=== PATIENT | female | born 1995 | race African-American/Black ===

== ENCOUNTER 2016-09-24 10:04 | Emergency (ER) | payer MEDICAID, OTHER ==
[~2016-09-24] VITALS: Ht 167.6 cm; Wt 112.5 kg
[~2016-09-24 10:04] MED LIST: NKM
--- NOTE | 2016-09-24 10:27 | Emergency Room Report ---
History of Present Illness General Chief Complaint: Abdominal Pain Source: Patient Present Illness HPI Patient presents with left lower abdominal pain sharp Onset this morning After going to the bathroom she also noticed some spotting vaginally Patient had an ultrasound performed on Wednesday which showed approximately 26 week Patient is Denies any chest pain or shortness of breath denies any back or flank pain Denies any dysuria frequency Allergies: Coded Allergies: No Known Allergies (Unverified , 09/24/16) Patient History Past Medical History: see triage record Pertinent Family History: none Last Menstrual Period: february 2016 Now: Yes : 1 Para: 0 Reviewed Nursing Documentation: PMH: Agreed, PSxH: Agreed Nursing Documentation-PMH Past Medical History: No Stated History Review of Systems All Other Systems: negative except mentioned in HPI Physical Exam Vital Signs Date Time Temp Pulse Resp B/P Pulse Ox O2 Delivery O2 Flow Rate FiO2 09/24/16 10:09 98.2 104 20 92/59 99 Room Air Sp02 EP Interpretation: reviewed, normal General Appearance: well appearing, no apparent distress Head: normocephalic, atraumatic Eyes: bilateral eye EOMI, bilateral eye PERRL ENT: hearing grossly normal, normal pharynx, TMs + canals normal, uvula midline Neck: full range of motion, supple, no meningismus, no bony tend Respiratory: lungs clear, normal breath sounds, no rhonchi, no respiratory distress, no retraction, no accessory muscle use Cardiovascular #1: normal peripheral pulses, regular rate, rhythm, no edema, no gallop, no JVD, no murmur Gastrointestinal: normal bowel sounds, non tender - Patient is somewhat obese makes the examination difficult, , soft, no mass, no organomegaly, non- distended, no guarding, no hernia, no pulsatile mass, no rebound Genitourinary: no CVA tenderness Musculoskeletal: normal inspection Neurologic: oriented x3, responsive, dust mixer III-XII nml as tested, motor strength/ tone normal, sensory intact Psychiatric: mood/affect normal Skin: normal color, no rash, warm/dry, palpation normal Lymphatic: normal inspection, no adenopathy Medical Decision Making Diagnostic Impression: Primary Impression: Threatened miscarriage ER Course Given the patient's history and exam emergent ultrasound was obtained at this time heart tone is observed No other obvious acute pathology was noted by general ultrasound Given the patient is over 24 weeks, heart tone monitoring and monitoring is appropriate In discussion with the family they're choosing to go by private auto to there pro shop attendant for further care There was a mention regarding [facility] I did attempt to contact [facility] to notify them of the patient's private transportation to that facility, for evaluation of possible early labor However I was not able to get in contact with labor and delivery department Patient does not have any signs of active contractions, does not appear to be in active labor the os is closed and therefore the patient was at this time discharged from our emergency room for further close followup, , Please note that there were a few bacteria in the urine and the patient was placed on Macrobid for this, Labs Test 09/24/16 10:19 Urine Color Yellow Urine Appearance Slightly cloudy Urine pH 8 (4.5-8.0) Urine Specific [place] 1.015 (1.005-1.035) Urine Protein Negative (NEGATIVE) Urine Glucose (UA) Negative (NEGATIVE) Urine Ketones Negative (NEGATIVE) Urine Occult Blood Negative (NEGATIVE) Urine Nitrite Negative (NEGATIVE) Urine Bilirubin Negative (NEGATIVE) Urine Urobilinogen Normal MG/DL (0.0-1.0) Urine Leukocyte Esterase 1+ (NEGATIVE) Urine RBC 0-2 /HPF (0 - 2) Urine WBC 5-10 /HPF (0 - 2) Urine Squamous Epithelial Cells Moderate /LPF (NONE/OCC) Urine Bacteria Few /HPF (NONE) CT/MRI/US Diagnostic Results CT/MRI/US Diagnostic Results : Impression pelvic ultrasoundmpression: 26 week 3 day single 5 intrauterine . No unusual features Last Vital Signs Date Time Temp Pulse Resp B/P Pulse Ox O2 Delivery O2 Flow Rate FiO2 09/24/16 10:09 98.2 104 20 92/59 99 Room Air Status: improved Disposition: HOME, SELF-CARE Condition: Improved Scripts Nitrofurantoin Monohyd/M-Cryst* (MACROBID 100 MG*) 100 Mg Capsule 100 MG ORAL EVERY 12 HOURS for 5 Days, CAP Prov: JOYCE VEGA D.O. 09/24/16 Additional Instructions: Patient is provided with the discharge instructions notified to follow up with primary doctor in the next 2-3 days otherwise return to the er with any worsening symptoms. Please note that this report is being documented using [employer] technology. This can lead to erroneous entry secondary to incorrect interpretation by the dictating instrument. JOYCE VEGA D.O. Sep 24, 2016 10:27
[2016-09-24 10:39] LABS: APPEARANCE,URINE SLIGHTLY CLOUDY; KETONES,URINE NEGATIVE (NEGATIVE); LEUKOCYTE ESTERASE ,URINE 1+ (NEGATIVE); NITRITE,URINE NEGATIVE (NEGATIVE); PH,URINE 8 (4.5-8.0); PROTEIN,URINE NEGATIVE (NEGATIVE); UROBILINOGEN,URINE NORMAL MG/DL (0.0-1.0)
[2016-09-24 10:54] LABS: BACTERIA,URINE FEW /HPF; RBC,URINE 0-2 /HPF (0 - 2); SQUAMOUS EPITHELIAL CELL,UR MODERATE /LPF (NONE/OCC)
[2016-09-24] MEDS ORDERED: NITROFURANTOIN100 M2 ORAL (11:58)
[2016-09-24 12:12] VITALS: BP 103/62
--- NOTE | 2016-09-24 12:49 | Diagnostic Imaging Report ---
Indication: PAIN Technique: Transabdominal and transvaginal images Comparison: None Findings: There is a single live intrauterine . This demonstrates a heart rate of 146 beats for minute. This demonstrates breech presentation. Anterior fundal placenta which clears the internal cervical os. No evidence of retroplacental or subchorionic hemorrhage. Normal amniotic fluid volume. The survey is closed, endocervical canal measuring 4.3 cm in length. Some mixed echogenicity fluid is seen within the cervix which may represent mucous. measurements as follows: Biparietal diameter 6.6 cm, 26 weeks 5 days; head circumference 24.3 cm, 26 weeks 2 days; abdominal circumference 21 cm, 25 weeks 4 days; femur length 5 centimeters, 27 weeks zero days. Estimated gestational age by average of ultrasound measurements is 26 weeks 3 days point. Estimated date of delivery is 12/28/2016. Estimated gestational age by dates is 32 weeks zero days. Limit assessment of anatomy is unremarkable. Unremarkable spine, extremities, stomach, cord insertion, three-vessel cord, kidneys,, intracranial structures. Normal four-chamber heart. Impression: 26 week 3 day single 5 intrauterine . No unusual features
== END 2016-09-24 12:12 | disposition home or self-care (01) ==
LOC: EMR 10:40
DX: O20.0 Threatened abortion (principal); Z3A.26 26 weeks gestation of pregnancy
CPT/HCPCS: 76805; 81003; 99284